=== PATIENT | male | born 1975 | race Two or more races ===

== ENCOUNTER 2021-07-30 17:12 | Emergency (ER) | payer MEDICAID, OTHER ==
[~2021-07-30] VITALS: Ht 198.1 cm; Wt 127.0 kg
[2021-07-30 17:17] VITALS: BP 158/93
== END 2021-07-30 23:07 | disposition left against medical advice (07) ==
LOC: ER 17:12
DX: R11.2 Nausea with vomiting, unspecified (principal); Z53.21 Procedure and treatment not carried out due to patient leaving prior to being seen by health care provider